=== PATIENT | male | born 1960 | race Caucasian/White ===

== ENCOUNTER 2017-10-07 09:28 | Emergency (ER) | payer BC ==
--- NOTE | 2017-10-07 09:34 | EDM.PDOC ---
"ED HPI GENERAL MEDICAL PROBLEM - General Chief Complaint: Headache Stated Complaint: [id number] SICK DEHYDRATION Time Seen by Provider: 10/07/17 09:34 Source of Information: Reports: Patient, RN, RN Notes Reviewed History Limitations: Reports: No Limitations - History of Present Illness INITIAL COMMENTS - FREE TEXT/NARRATIVE: Arrives to ER from local hotel by POV with c/o onset of frontal headache last night after dinner. Pt reports feeling dizzy, photophobia, and having nausea with recurrent vomiting all night. Denies visual changes, hearing changes, ear or eye pain, neck pain or stiffness, fever, chills, or abdominal pain. Denies history of migraines or headaches. States that this is the worst headache he has ever had. Pt states he is from out of town and has been here with his sons ice [employer]. Onset Date: 10/06/17 Duration: Constant Location: Reports: Head Quality: Reports: Ache, Throbbing Severity: Severe Improves with: Reports: None Worsens with: Reports: None Associated Symptoms: Reports: No Other Symptoms Other Treatments [employer]: none Headache Pain Score (Numeric/FACES): 7 - Related Data Allergies Allergy/AdvReac Type Severity Reaction Status Date / Time No Known Allergies Allergy Verified 10/07/17 09:39 Home Meds: Home Meds . [No Known Home Meds] 10/07/17 [History] Social & Family History - Family History Family Medical History: Noncontributory - Tobacco Use Smoking Status *Q: Never Smoker - Alcohol Use Alcohol Use History: Yes Alcohol Use Frequency: Rarely - Living Situation & Occupation Living situation: Reports: , with Family Occupation: Employed ED ROS GENERAL - Review of Systems Review Of Systems: ROS reveals no pertinent complaints other than HPI. - Physical Exam Exam: See Below Exam Limited By: No Limitations General Appearance: Alert, WD/WN, No Apparent Distress Eye Exam: Bilateral Eye: EOMI, Normal Inspection, PERRL, Other (photophobia) Ears: Normal External Exam, Normal Canal, Hearing Grossly Normal, Normal TMs Nose: Normal Inspection, Normal Mucosa, No Blood Throat/Mouth: Normal Inspection, Normal Lips, Normal Teeth, Normal Gums, Normal Oropharynx, Normal Voice, No Airway Compromise Head Exam: Atraumatic, Normocephalic Neck: Normal Inspection, Supple, Non-Tender, Full Range of Motion, Other (no nuchal rigidity). No: Lymphadenopathy (L), Lymphadenopathy (R) Respiratory/Chest: No Respiratory Distress, Lungs Clear, Normal Breath Sounds, No Accessory Muscle Use, Chest Non-Tender Cardiovascular: Regular Rate, Rhythm, No Edema, No Gallop, No JVD, No Murmur, No Rub GI/Abdominal: Normal Bowel Sounds, Soft, Non-Tender, No Distention (Male) Exam: Deferred Rectal (Males) Exam: Deferred Neuro Exam (Abbreviated): Alert, Oriented, CN II-XII Intact, Normal Cognition, Normal Gait, No Motor/Sensory Deficits Back Exam: Normal Inspection Extremities: Normal Inspection Psychiatric: Normal Affect, Normal Mood Skin Exam: Warm, Dry, Intact, Normal Color, No Rash Course - Vital Signs Last Recorded V/S: Last Vital Signs Temp 36.9 C 10/07/17 10:48 Pulse 64 10/07/17 10:48 Resp 18 10/07/17 10:48 BP 104/58 L 10/07/17 10:48 Pulse Ox 96 10/07/17 10:48 - Orders/Labs/Meds Orders: Active Orders 24 hr Category Date Time Status Peripheral IV Care [RC] . DIRECTED Care 10/07/17 09:55 Active CULTURE STREP A CONFIRMATION [] Stat Lab 10/07/17 09:51 Results STREP SCRN A RAPID W CULT CONF [] Stat Lab 10/07/17 09:51 Results HYDROmorphone [Dilaudid] Med 10/07/17 10:50 Once 1 mg IVPUSH ONETIME ONE Ketorolac [Toradol] Med 10/07/17 10:49 Once 30 mg IVPUSH ONETIME ONE Ondansetron [Zofran] Med 10/07/17 10:50 Once 4 mg IV ONETIME ONE Sodium Chloride 0.9% [Normal Saline] 1,000 ml Med 10/07/17 09:57 Active IV .BOLUS Sodium Chloride 0.9% [Saline Flush] Med 10/07/17 09:54 Active 10 ml FLUSH ASDIRECTED PRN Peripheral IV Insertion Adult [OM.PC] Stat Oth 10/07/17 09:54 Ordered Medication Orders Sodium Chloride (Normal Saline) 1,000 mls @ 999 mls/hr IV .BOLUS ONE Stop: 10/07/17 10:57 Last Admin: 10/07/17 10:11 Dose: 999 mls/hr Sodium Chloride (Saline Flush) 10 ml FLUSH ASDIRECTED PRN PRN Reason: Keep Vein Open Last Admin: 10/07/17 10:11 Dose: 10 ml Labs: Laboratory Tests 10/07/17 10/07/17 10/07/17 Range/Units 09:56 09:56 09:56 WBC 8.6 (5.0-10.0) 10^3/uL RBC 4.96 (4.6-6.2) 10^6/uL Hgb 15.3 (14.0-18.0) g/dL Hct 43.3 (40.0-54.0) % MCV 87.3 (80-100) fL MCH 30.8 (27.0-34.0) pg MCHC 35.3 H (33.0-35.0) g/dL Plt Count 155 (150-450) 10^3/uL Neut % (Auto) 83.3 H (42.2-75.2) % Lymph % (Auto) 12.6 L (20.5-50.1) % Simpson % (Auto) 3.5 (2-8) % Eos % (Auto) 0.3 L (1.0-3.0) % Baso % (Auto) 0.3 (0.0-1.0) % Sodium 140 (135-145) mmol/L Potassium 3.8 (3.6-5.0) mmol/L Chloride 110 (101-111) mmol/L Carbon Dioxide 23.0 (21.0-31.0) mmol/L Anion Gap 10.8 BUN 18 (7-18) mg/dL Creatinine 0.8 (0.6-1.3) mg/dL Est Cr Clr Drug Dosing 100.65 mL/min Estimated GFR (MDRD) > 60 BUN/Creatinine Ratio 22.50 Glucose 114 H (74-105) mg/dL Calcium 8.5 (8.4-10.2) mg/dl Magnesium 1.9 (1.8-2.5) mg/dL Total Bilirubin 0.7 (0.2-1.0) mg/dL AST 20 (10-42) IU/L ALT 19 (10-60) IU/L Alkaline Phosphatase 51 (42-121) IU/L C-Reactive Protein 0.6 (0.0-1.3) mg/dL Total Protein 6.3 L (6.7-8.2) g/dl Albumin 4.1 (3.2-5.5) g/dl Globulin 2.2 Albumin/Globulin Ratio 1.86 Rapid Strep: negative Meds: Medications Generic Name Dose Route Start Last Admin Trade Name Freq PRN Reason Stop Dose Admin Sodium Chloride 1,000 mls @ 999 mls/hr 10/07/17 09:57 10/07/17 10:11 Normal Saline IV 10/07/17 10:57 999 mls/hr .BOLUS ONE Administration Sodium Chloride 10 ml 10/07/17 09:54 10/07/17 10:11 Saline Flush FLUSH 10 ml ASDIRECTED PRN Administration Keep Vein Open Discontinued Medications Generic Name Dose Route Start Last Admin Trade Name Freq PRN Reason Stop Dose Admin Hydromorphone HCl 1 mg 10/07/17 09:57 10/07/17 10:10 Dilaudid IVPUSH 10/07/17 09:58 1 mg ONETIME ONE Administration Ondansetron HCl 4 mg 10/07/17 09:57 10/07/17 10:11 Zofran IV 10/07/17 09:58 4 mg ONETIME ONE Administration - Radiology Interpretation Free Text/Narrative:: EXAM: CT Head Without Intravenous Contrast EXAM DATE/TIME: 10/07/2017 10:04 AM CLINICAL HISTORY: 57 years old, male; Pain and signs and symptoms; Dizziness; Headache; Headache not specified; Additional info: Worst headache of life, possible stroke. Severe headache associated with nausea, vomiting, and dizziness TECHNIQUE: Axial computed tomography images of the head/brain without intravenous contrast. All CT scans at this facility use one or more dose reduction techniques, viz.: automated exposure control; ma/kV adjustment per patient size (including targeted exams where dose is matched to indication; i.e. head); or iterative reconstruction technique. COMPARISON: No relevant prior studies available. FINDINGS: Brain: No hemorrhage or edema seen. Hypodensities in the region of the lentiform nuclei may represent perivascular spaces or lacunar infarcts, probably chronic. No significant white matter disease. Ventricles: Unremarkable. No ventriculomegaly. Bones/joints: Unremarkable. No acute fracture. Soft tissues: Unremarkable. Sinuses: Unremarkable as visualized. No acute sinusitis. Mastoid air cells: Unremarkable as visualized. No mastoid effusion. GLEITZ, HERMAN | Final Radiology Report CONFIDENTIALITY STATEMENT This report is intended only for use by the referring physician, and only in accordance with law. If you received this in error, call [phone]. Page 2 of 2 Other findings: There is a 7 mm low density lesion in the pineal region, statistically likely to be a pineal cyst. IMPRESSION: No acute intracranial abnormality seen. Thank you for allowing us to participate in the care of your patient. Dictated and Authenticated by: Rosi Arreguin MD 10/07/2017 10:[address] Results Date: 10/07/17 CT Results Time: 10:40 Departure - Departure Time of Disposition: 10:51 Disposition: Home, Self-Care 01 Condition: Fair Clinical Impression: Pineal gland cyst Acute headache Qualifiers: Headache type: unspecified Intractability: intractable Qualified Code(s): R51 - Headache - Discharge Information Instructions: General Headache Without Cause Referrals: PCP,Not In Area [Primary Care Provider] - Forms: ED Department Discharge Additional Instructions: Rx: Promethazine 25mg Rx: Matlock 5mg/325mg Do not drive or operate equipment while under the influence of promethazine or norco. Follow up in clinic with your primary doctor this week for recheck and review of your CT Head scan and report, and for further evaluation if needed. - My Orders Last 24 Hours: My Active Orders 10/07/17 09:51 CULTURE STREP A CONFIRMATION [RM] Stat STREP SCRN A RAPID W CULT CONF [RM] Stat 10/07/17 09:54 Sodium Chloride 0.9% [Saline Flush] 10 ml FLUSH ASDIRECTED PRN Peripheral IV Insertion Adult [OM.PC] Stat 10/07/17 09:55 Peripheral IV Care [RC] . DIRECTED 10/07/17 09:57 Sodium Chloride 0.9% [Normal Saline] 1,000 ml IV .BOLUS 10/07/17 10:49 Ketorolac [Toradol] 30 mg IVPUSH ONETIME ONE 10/07/17 10:50 HYDROmorphone [Dilaudid] 1 mg IVPUSH ONETIME ONE Ondansetron [Zofran] 4 mg IV ONETIME ONE - Assessment/Plan Last 24 Hours: My Active Orders 10/07/17 09:51 CULTURE STREP A CONFIRMATION [RM] Stat STREP SCRN A RAPID W CULT CONF [RM] Stat 10/07/17 09:54 Sodium Chloride 0.9% [Saline Flush] 10 ml FLUSH ASDIRECTED PRN Peripheral IV Insertion Adult [OM.PC] Stat 10/07/17 09:55 Peripheral IV Care [RC] . DIRECTED 10/07/17 09:57 Sodium Chloride 0.9% [Normal Saline] 1,000 ml IV .BOLUS 10/07/17 10:49 Ketorolac [Toradol] 30 mg IVPUSH ONETIME ONE 10/07/17 10:50 HYDROmorphone [Dilaudid] 1 mg IVPUSH ONETIME ONE Ondansetron [Zofran] 4 mg IV ONETIME ONE"
[2017-10-07] MEDS ORDERED: Sodium Chloride 0.9% 10 ML Syringe FLUSH PRN (09:54)
[2017-10-07] MEDS ORDERED: HYDROmorphone 1 MG/ML Syringe IVPUSH ONE ×2 (09:57→10:50)
[2017-10-07] MEDS ORDERED: Ondansetron 4 MG/2 ML SDV IV ONE ×2 (09:57→10:50)
[2017-10-07] MEDS ORDERED: Sodium Chloride 0.9% 1,000 ML IV ONE (09:57)
[2017-10-07 10:24] LABS: CHLORIDE,CL 110 mmol/L (101-111); SODIUM,NA 140 mmol/L (135-145)
[2017-10-07] MEDS ORDERED: Ketorolac 30 MG/ML SDV IVPUSH ONE (10:49)
== END 2017-10-07 11:29 | disposition home or self-care (01) ==
LOC: DL.ED 09:28
DX: R51 Headache (principal); E34.8 Other specified endocrine disorders
CPT/HCPCS: 36415; 70450; 80053; 83735; 85025; 86140; 87081; 87430; 96361; 96374; 96375; 96376; 99284; J1170; J1885; J2405; J7030; J7050